=== PATIENT | male | born 1955 | race Caucasian/White ===

== ENCOUNTER 2020-10-18 08:22 | Inpatient (IN) | payer BC, OTHER ==
[~2020-10-18] VITALS: Ht 182.9 cm; Wt 93.5 kg
[2020-10-18 10:25] LABS: Albumin 2.6 g/dL (3.4-5.0); Anion Gap 10 (5-15); Blood Urea Nitrogen 8 mg/dL (7-18); Carbon Dioxide 20 mmol/L (21-32); Chloride 96 mmol/L (98-107); Glucose 116 mg/dL (74-106); Potassium 3.6 mmol/L (3.5-5.1); Sodium 126 mmol/L (136-145)
[2020-10-18 10:31] LABS: Alanine Aminotransferase 72 U/L (16-61); Alkaline Phosphatase 90 U/L (45-117); Aspartate Aminotransferase 45 U/L (15-37); BUN/Creatinine Ratio 9.9; Bilirubin, Total 1.4 mg/dL (0.2-1.0); Calcium 7.9 mg/dL (8.5-10.1); GFR African American 123 mL/min; GFR Non-African American 101 mL/min; Total Protein 7.7 g/dL (6.4-8.2)
[2020-10-18 10:37] LABS: Basophils # (auto) 0 10 ^3/uL (0-0.2); Basophils % (auto) 0.2 % (0.0-2.0); Eosinophils # (auto) 0 10 ^3/uL (0-0.8); Lymphocytes # (auto) 0.4 10 ^3/uL (0.4-5.4); Lymphocytes % (auto) 9.2 % (10.0-50.0); Mean Corpuscular Hemoglobin 35.6 pg (28.0-32.0); Mean Corpuscular Hgb Conc. 36.4 g/dL (32.0-36.0); Mean Corpuscular Volume 97.6 fL (80.0-100.0); Monocytes # (auto) 0.3 10 ^3/uL (0-1.3); Monocytes % (auto) 7.1 % (0.0-12.0); Neutrophils # (auto) 3.9 10 ^3/uL (1.6-8.6); Neutrophils % (auto) 83.5 % (37.0-80.0); Nucleated Red Blood Cells % 2.2 %; Red Blood Cells 6.23 10^6/uL (4.5-5.90); Red Cell Distribution Width 13.7 % (11.8-14.3); White Blood Cell 4.7 10^3/uL (4.4-10.8)
[2020-10-18 10:38] LABS: Hematocrit 53.2 % (41.0-53.0); Hemoglobin 19.5 g/dL (13.5-17.5)
[2020-10-18] MEDS ORDERED: SODIUM CHLORIDE 0.9% 1,000 ML IV ONE (15:30)
[2020-10-18] MEDS ORDERED: SODIUM CHLORIDE 0.9% 1,000 ML IVB ONE (15:30)
[2020-10-18] MEDS ORDERED: CHOLECALCIFEROL (VITD3) 2,000 UNIT CAP/TAB PO ONE (15:30)
[2020-10-18] MEDS ORDERED: AZITHROMYCIN 500MG/ 250ML 250 ML IV ONE (15:30)
[2020-10-18] MEDS ORDERED: cefTRIAXone 1GM/50ML D5W 50 ML IV ONE ×2 (15:30→16:30)
[2020-10-18] MEDS ORDERED: IOHEXOL 350 MG/ML 100ML IJ ONE (16:48)
[2020-10-18 16:58] LABS: INR 1.03 (0.9-1.15); Partial Thromboplastin Time 28.3 sec (23.6-33.0)
[2020-10-18] MEDS ORDERED: ALBUTEROL SULF 2.5 MG/0.5ML(0.5%) NEB SOLN NEB ONE (17:00)
[2020-10-18] MEDS ORDERED: DexAMETHasone SOD PHOS 10MG/1ML VIAL INJ IV ONE (17:00)
[2020-10-18] MEDS ORDERED: ZINC SULFATE 220mg CAP or TAB PO ONE (17:00)
[2020-10-18] MEDS ORDERED: ASCORBIC ACID 500 MG TAB PO ONE (17:00)
[2020-10-18] MEDS ORDERED: IPRATROPIUM BROM 0.5 MG/2.5ML INH SOL NEB ONE (17:00)
[2020-10-18 17:22] LABS: Lactic Acid w/Reflex 2.2 mmol/L (0.4-2.0)
[2020-10-19] MEDS ORDERED: NITROGLYCERIN 0.4 MG SL TAB SL PRN (03:45)
[2020-10-19] MEDS ORDERED: MORPHINE SULFATE INJECTION 2 MG/ML SYRG IV PRN (03:45)
[2020-10-19] MEDS ORDERED: DOCUSATE SOD 100 MG CAP PO PRN (03:45)
[2020-10-19] MEDS ORDERED: HYDROcodone-ACET 5/325MG TAB PO PRN (03:45)
[2020-10-19] MEDS ORDERED: ONDANSETRON HCL 4 MG/2 ML VIAL IV PRN (03:45)
[2020-10-19] MEDS ORDERED: ACETAMINOPHEN 500 MG TAB PO PRN (03:45)
[2020-10-19 03:49] VITALS: BP 103/57
[2020-10-19 05:20] LABS: Albumin 2.1 g/dL (3.4-5.0); Calcium 7.8 mg/dL (8.5-10.1); Magnesium 2.9 mg/dL (1.6-2.6); Potassium 3.7 mmol/L (3.5-5.1)
[2020-10-19 05:24] LABS: BUN/Creatinine Ratio 15.9; Total Protein 6.9 g/dL (6.4-8.2)
[2020-10-19] MEDS: SODIUM CHLOR 0.9% PF (SALINE LOCK) 10ML VIAL/SYR IV SCH ×3 (05:30→21:01)
[2020-10-19 05:51] LABS: Basophils # (auto) 0 10 ^3/uL (0-0.2); Basophils % (auto) 0.4 % (0.0-2.0); Eosinophils # (auto) 0 10 ^3/uL (0-0.8); Hematocrit 45.5 % (41.0-53.0); Hemoglobin 16.5 g/dL (13.5-17.5); Lymphocytes # (auto) 0.4 10 ^3/uL (0.4-5.4); Lymphocytes % (auto) 14.1 % (10.0-50.0); Mean Corpuscular Hemoglobin 35.9 pg (28.0-32.0); Mean Corpuscular Hgb Conc. 36.2 g/dL (32.0-36.0); Mean Corpuscular Volume 99.3 fL (80.0-100.0); Monocytes # (auto) 0.4 10 ^3/uL (0-1.3); Monocytes % (auto) 12.7 % (0.0-12.0); Neutrophils # (auto) 2.1 10 ^3/uL (1.6-8.6); Neutrophils % (auto) 72.8 % (37.0-80.0); Nucleated Red Blood Cells % 0.2 %; Red Blood Cells 4.58 10^6/uL (4.5-5.90); White Blood Cell 2.8 10^3/uL (4.4-10.8)
[2020-10-19] MEDS: BUDESONIDE (INHALATION) 180 MCG IH IN SCH ×3 (10:05→22:43)
[2020-10-19] MEDS: ALBUTEROL SULF HFA 90MCG INH 200DOSE IN PRN (10:05)
[2020-10-19] MEDS: cefTRIAXone 1GM/50ML D5W 50 ML IV SCH (11:14)
[2020-10-19] MEDS: DexAMETHasone SOD PHOS 10MG/1ML VIAL INJ IV SCH (11:15)
[2020-10-19] MEDS: FAMOTIDINE (10MG/ML) 2ML VL IV SCH ×2 (11:15→21:01)
[2020-10-19] MEDS: ZINC SULFATE 220mg CAP or TAB PO SCH (11:16)
[2020-10-19] MEDS: ASCORBIC ACID 1,000 MG TAB PO SCH (11:16)
[2020-10-19] MEDS: AZITHROMYCIN 500MG/ 250ML 250 ML IV SCH (11:16)
[2020-10-19] MEDS: MULTIPLE VITAMIN TAB PO SCH (11:16)
[2020-10-19] MEDS: CHOLECALCIFEROL (VITD3) 2,000 UNIT CAP/TAB PO SCH (11:17)
[2020-10-19] MEDS: ENOXAPARIN SOD 40 MG/0.4 ML SYRINGE SC SCH ×2 (11:17→21:01)
[2020-10-19] MEDS ORDERED: REMDESIVIR PER PHARMACY 0 ML IV SCH (12:30)
[2020-10-19] MEDS ORDERED: REMDESIVIR 200 MG in NS 210ml LOADING DOSE ADULT IV ONE (15:00)
[2020-10-19 17:00] VITALS: BP 126/72
[2020-10-19 22:00] VITALS: BP 109/81
[2020-10-20] MEDS ORDERED: IOHEXOL 350 MG/ML 100ML IJ ONE ×2 (05:00→15:06)
[2020-10-20 05:31] VITALS: BP 122/76
[2020-10-20] MEDS: SODIUM CHLOR 0.9% PF (SALINE LOCK) 10ML VIAL/SYR IV SCH ×3 (05:50→21:12)
[2020-10-20 06:00] LABS: Basophils # (auto) 0 10 ^3/uL (0-0.2); Eosinophils # (auto) 0 10 ^3/uL (0-0.8); Lymphocytes # (auto) 0.5 10 ^3/uL (0.4-5.4); Monocytes # (auto) 0.7 10 ^3/uL (0-1.3); Nucleated Red Blood Cells % 0.1 %
[2020-10-20 06:04] LABS: Basophils % (auto) 0.3 % (0.0-2.0); Hematocrit 46.7 % (41.0-53.0); Lymphocytes % (auto) 8.1 % (10.0-50.0); Mean Corpuscular Hemoglobin 36.2 pg (28.0-32.0); Mean Corpuscular Hgb Conc. 36.3 g/dL (32.0-36.0); Mean Corpuscular Volume 99.6 fL (80.0-100.0); Monocytes % (auto) 11.8 % (0.0-12.0); Neutrophils # (auto) 4.7 10 ^3/uL (1.6-8.6); Neutrophils % (auto) 79.8 % (37.0-80.0); Red Blood Cells 4.69 10^6/uL (4.5-5.90); Red Cell Distribution Width 13.8 % (11.8-14.3); White Blood Cell 5.9 10^3/uL (4.4-10.8)
[2020-10-20 06:23] LABS: Potassium 3.5 mmol/L (3.5-5.1)
[2020-10-20 06:33] LABS: Albumin 2.3 g/dL (3.4-5.0); BUN/Creatinine Ratio 21.5; Bilirubin, Total 0.8 mg/dL (0.2-1.0); Calcium 8.3 mg/dL (8.5-10.1); Total Protein 6.9 g/dL (6.4-8.2)
[2020-10-20] MEDS: BUDESONIDE (INHALATION) 180 MCG IH IN SCH ×2 (06:47→20:01)
[2020-10-20] MEDS: ALBUTEROL SULF HFA 90MCG INH 200DOSE IN PRN ×2 (06:48→20:01)
[2020-10-20 09:00] VITALS: BP 109/76
[2020-10-20] MEDS: FAMOTIDINE (10MG/ML) 2ML VL IV SCH ×2 (09:06→21:12)
[2020-10-20] MEDS: DexAMETHasone SOD PHOS 10MG/1ML VIAL INJ IV SCH (09:06)
[2020-10-20] MEDS: cefTRIAXone 1GM/50ML D5W 50 ML IV SCH (09:06)
[2020-10-20] MEDS: ZINC SULFATE 220mg CAP or TAB PO SCH (09:07)
[2020-10-20] MEDS: ENOXAPARIN SOD 40 MG/0.4 ML SYRINGE SC SCH ×2 (09:08→21:12)
[2020-10-20] MEDS: MULTIPLE VITAMIN TAB PO SCH (09:08)
[2020-10-20] MEDS: CHOLECALCIFEROL (VITD3) 2,000 UNIT CAP/TAB PO SCH (09:08)
[2020-10-20] MEDS: ASCORBIC ACID 1,000 MG TAB PO SCH (09:08)
[2020-10-20] MEDS: AZITHROMYCIN 500MG/ 250ML 250 ML IV SCH (10:30)
[2020-10-20 13:00] VITALS: BP 113/76
[2020-10-20] MEDS: REMDESIVIR 100mg 100 MG in SODIUM CHL 0.9% 230 ML IV SCH (15:13)
[2020-10-20 17:00] VITALS: BP 106/47
[2020-10-20 22:00] VITALS: BP 115/68
[2020-10-21 05:00] VITALS: BP 124/66
[2020-10-21] MEDS: SODIUM CHLOR 0.9% PF (SALINE LOCK) 10ML VIAL/SYR IV SCH ×3 (06:12→20:30)
[2020-10-21 06:17] LABS: Potassium 3.7 mmol/L (3.5-5.1)
[2020-10-21 06:24] LABS: Albumin 2.4 g/dL (3.4-5.0); Calcium 8.4 mg/dL (8.5-10.1); Total Protein 7.2 g/dL (6.4-8.2)
[2020-10-21] MEDS: BUDESONIDE (INHALATION) 180 MCG IH IN SCH ×2 (07:13→22:31)
[2020-10-21] MEDS: ALBUTEROL SULF HFA 90MCG INH 200DOSE IN PRN ×2 (07:13→22:31)
[2020-10-21] MEDS: DexAMETHasone SOD PHOS 10MG/1ML VIAL INJ IV SCH (09:05)
[2020-10-21] MEDS: FAMOTIDINE (10MG/ML) 2ML VL IV SCH ×2 (09:05→20:30)
[2020-10-21] MEDS: CHOLECALCIFEROL (VITD3) 2,000 UNIT CAP/TAB PO SCH (09:05)
[2020-10-21] MEDS: ENOXAPARIN SOD 40 MG/0.4 ML SYRINGE SC SCH ×2 (09:05→20:30)
[2020-10-21] MEDS: MULTIPLE VITAMIN TAB PO SCH (09:06)
[2020-10-21] MEDS: ASCORBIC ACID 1,000 MG TAB PO SCH (09:06)
[2020-10-21] MEDS: ZINC SULFATE 220mg CAP or TAB PO SCH (09:06)
[2020-10-21] MEDS: cefTRIAXone 1GM/50ML D5W 50 ML IV SCH (09:06)
[2020-10-21 09:10] VITALS: BP 124/73
[2020-10-21] MEDS: AZITHROMYCIN 500MG/ 250ML 250 ML IV SCH (11:36)
[2020-10-21 13:00] VITALS: BP 106/68
[2020-10-21] MEDS: REMDESIVIR 100mg 100 MG in SODIUM CHL 0.9% 230 ML IV SCH (15:35)
[2020-10-21 17:00] VITALS: BP 146/89
[2020-10-21 19:45] VITALS: BP 146/89
[2020-10-21 22:00] VITALS: BP 115/71
[2020-10-22 05:00] VITALS: BP 118/82
[2020-10-22 05:50] LABS: Potassium 3.6 mmol/L (3.5-5.1)
[2020-10-22 05:58] LABS: Albumin 1.9 g/dL (3.4-5.0); Bilirubin, Total 0.6 mg/dL (0.2-1.0); Calcium 8.2 mg/dL (8.5-10.1); Total Protein 6.3 g/dL (6.4-8.2)
[2020-10-22] MEDS: SODIUM CHLOR 0.9% PF (SALINE LOCK) 10ML VIAL/SYR IV SCH ×3 (06:00→22:46)
[2020-10-22] MEDS: ALBUTEROL SULF HFA 90MCG INH 200DOSE IN PRN ×2 (07:17→20:42)
[2020-10-22] MEDS: BUDESONIDE (INHALATION) 180 MCG IH IN SCH ×2 (07:18→20:42)
[2020-10-22 09:00] VITALS: BP 113/78
[2020-10-22] MEDS: cefTRIAXone 1GM/50ML D5W 50 ML IV SCH (09:32)
[2020-10-22] MEDS: DexAMETHasone SOD PHOS 10MG/1ML VIAL INJ IV SCH (10:09)
[2020-10-22] MEDS: FAMOTIDINE (10MG/ML) 2ML VL IV SCH ×2 (10:09→22:46)
[2020-10-22] MEDS: ENOXAPARIN SOD 40 MG/0.4 ML SYRINGE SC SCH ×2 (10:12→22:46)
[2020-10-22] MEDS: ASCORBIC ACID 1,000 MG TAB PO SCH (10:12)
[2020-10-22] MEDS: AZITHROMYCIN 500MG/ 250ML 250 ML IV SCH (10:12)
[2020-10-22] MEDS: MULTIPLE VITAMIN TAB PO SCH (10:12)
[2020-10-22] MEDS: ZINC SULFATE 220mg CAP or TAB PO SCH (10:13)
[2020-10-22] MEDS: CHOLECALCIFEROL (VITD3) 2,000 UNIT CAP/TAB PO SCH (10:13)
[2020-10-22 13:00] VITALS: BP 107/74
[2020-10-22] MEDS ORDERED: FUROSEMIDE 20 MG/2 ML VIAL IV ONE (14:00)
[2020-10-22] MEDS: REMDESIVIR 100mg 100 MG in SODIUM CHL 0.9% 230 ML IV SCH (15:42)
[2020-10-22 17:00] VITALS: BP 111/75
[2020-10-22 22:00] VITALS: BP 123/75
[2020-10-23 05:00] VITALS: BP 126/68
[2020-10-23] MEDS: SODIUM CHLOR 0.9% PF (SALINE LOCK) 10ML VIAL/SYR IV SCH ×3 (06:26→22:24)
[2020-10-23 06:45] LABS: Potassium 3.6 mmol/L (3.5-5.1)
[2020-10-23 06:49] LABS: Basophils # (auto) 0 10 ^3/uL (0-0.2); Basophils % (auto) 0.1 % (0.0-2.0); Eosinophils # (auto) 0 10 ^3/uL (0-0.8); Eosinophils % (auto) 0.5 % (0.0-7.0); Lymphocytes # (auto) 0.5 10 ^3/uL (0.4-5.4); Mean Corpuscular Volume 100.2 fL (80.0-100.0); Monocytes # (auto) 0.6 10 ^3/uL (0-1.3)
[2020-10-23 06:52] LABS: Hematocrit 45.2 % (41.0-53.0); Hemoglobin 16.1 g/dL (13.5-17.5); Lymphocytes % (auto) 6.5 % (10.0-50.0); Mean Corpuscular Hemoglobin 35.7 pg (28.0-32.0); Mean Corpuscular Hgb Conc. 35.7 g/dL (32.0-36.0); Monocytes % (auto) 8.1 % (0.0-12.0); Neutrophils # (auto) 6.7 10 ^3/uL (1.6-8.6); Neutrophils % (auto) 84.8 % (37.0-80.0); Red Blood Cells 4.51 10^6/uL (4.5-5.90); Red Cell Distribution Width 13.9 % (11.8-14.3); White Blood Cell 7.9 10^3/uL (4.4-10.8)
[2020-10-23 06:58] LABS: Albumin 2.2 g/dL (3.4-5.0); BUN/Creatinine Ratio 17.9; Bilirubin, Total 0.6 mg/dL (0.2-1.0); CRP High Sensitivity 10.7 mg/dL (< 0.3); Calcium 8.5 mg/dL (8.5-10.1)
[2020-10-23] MEDS: BUDESONIDE (INHALATION) 180 MCG IH IN SCH ×2 (07:22→22:00)
[2020-10-23] MEDS: ALBUTEROL SULF HFA 90MCG INH 200DOSE IN PRN (07:22)
[2020-10-23 08:00] VITALS: BP 114/78
[2020-10-23] MEDS: cefTRIAXone 1GM/50ML D5W 50 ML IV SCH (08:46)
[2020-10-23 09:00] VITALS: BP 131/88
[2020-10-23] MEDS: FAMOTIDINE (10MG/ML) 2ML VL IV SCH ×2 (09:17→22:23)
[2020-10-23] MEDS: DexAMETHasone SOD PHOS 10MG/1ML VIAL INJ IV SCH (09:17)
[2020-10-23] MEDS: FUROSEMIDE 20 MG/2 ML VIAL IV SCH (09:17)
[2020-10-23] MEDS: ZINC SULFATE 220mg CAP or TAB PO SCH (09:17)
[2020-10-23] MEDS: ASCORBIC ACID 1,000 MG TAB PO SCH (09:18)
[2020-10-23] MEDS: ENOXAPARIN SOD 40 MG/0.4 ML SYRINGE SC SCH ×2 (09:18→22:24)
[2020-10-23] MEDS: MULTIPLE VITAMIN TAB PO SCH (09:18)
[2020-10-23] MEDS: CHOLECALCIFEROL (VITD3) 2,000 UNIT CAP/TAB PO SCH (09:18)
[2020-10-23] MEDS ORDERED: FUROSEMIDE 20 MG/2 ML VIAL IV SCH (10:00)
[2020-10-23] MEDS: AZITHROMYCIN 500MG/ 250ML 250 ML IV SCH (10:27)
[2020-10-23 13:00] VITALS: BP 111/77
[2020-10-23] MEDS: REMDESIVIR 100mg 100 MG in SODIUM CHL 0.9% 230 ML IV SCH (15:53)
[2020-10-23 16:58] VITALS: BP 127/69
[2020-10-23 22:00] VITALS: BP 124/79
[2020-10-24] MEDS: ALBUTEROL SULF HFA 90MCG INH 200DOSE IN PRN ×3 (02:03→21:13)
[2020-10-24 05:00] VITALS: BP 119/75
[2020-10-24] MEDS: SODIUM CHLOR 0.9% PF (SALINE LOCK) 10ML VIAL/SYR IV SCH ×3 (06:18→22:36)
[2020-10-24] MEDS: BUDESONIDE (INHALATION) 180 MCG IH IN SCH ×2 (06:51→21:13)
[2020-10-24 06:56] LABS: Basophils # (auto) 0 10 ^3/uL (0-0.2); Basophils % (auto) 0.1 % (0.0-2.0); Eosinophils # (auto) 0.1 10 ^3/uL (0-0.8); Eosinophils % (auto) 1.1 % (0.0-7.0); Lymphocytes # (auto) 0.5 10 ^3/uL (0.4-5.4); Mean Corpuscular Hemoglobin 35.1 pg (28.0-32.0); Monocytes # (auto) 0.7 10 ^3/uL (0-1.3); Nucleated Red Blood Cells % 0.1 %
[2020-10-24 06:58] LABS: Hematocrit 45.5 % (41.0-53.0); Lymphocytes % (auto) 5.4 % (10.0-50.0); Mean Corpuscular Hgb Conc. 35.1 g/dL (32.0-36.0); Monocytes % (auto) 8.2 % (0.0-12.0); Neutrophils # (auto) 7.7 10 ^3/uL (1.6-8.6); Neutrophils % (auto) 85.2 % (37.0-80.0); Red Blood Cells 4.56 10^6/uL (4.5-5.90); Red Cell Distribution Width 13.8 % (11.8-14.3)
[2020-10-24 07:15] LABS: Potassium 4.1 mmol/L (3.5-5.1)
[2020-10-24 07:16] LABS: BUN/Creatinine Ratio 26.9; Calcium 7.9 mg/dL (8.5-10.1); Magnesium 2.7 mg/dL (1.6-2.6)
[2020-10-24 08:00] VITALS: BP 131/88
[2020-10-24 09:00] VITALS: BP 131/81
[2020-10-24] MEDS: cefTRIAXone 1GM/50ML D5W 50 ML IV SCH (09:03)
[2020-10-24] MEDS: FAMOTIDINE (10MG/ML) 2ML VL IV SCH ×2 (09:03→22:35)
[2020-10-24] MEDS: DexAMETHasone SOD PHOS 10MG/1ML VIAL INJ IV SCH (09:03)
[2020-10-24] MEDS: MULTIPLE VITAMIN TAB PO SCH (09:04)
[2020-10-24] MEDS: ASCORBIC ACID 1,000 MG TAB PO SCH (09:04)
[2020-10-24] MEDS: ZINC SULFATE 220mg CAP or TAB PO SCH (09:04)
[2020-10-24] MEDS: CHOLECALCIFEROL (VITD3) 2,000 UNIT CAP/TAB PO SCH (09:04)
[2020-10-24] MEDS: ENOXAPARIN SOD 40 MG/0.4 ML SYRINGE SC SCH ×2 (09:04→22:36)
[2020-10-24] MEDS: FUROSEMIDE 20 MG/2 ML VIAL IV SCH (09:06)
[2020-10-24 13:00] VITALS: BP 94/67
[2020-10-24 17:00] VITALS: BP 108/66
[2020-10-24 22:00] VITALS: BP 112/70
[2020-10-25 01:59] VITALS: BP 112/70
[2020-10-25 05:00] VITALS: BP 134/80
[2020-10-25] MEDS: SODIUM CHLOR 0.9% PF (SALINE LOCK) 10ML VIAL/SYR IV SCH ×3 (06:28→21:20)
[2020-10-25] MEDS: BUDESONIDE (INHALATION) 180 MCG IH IN SCH ×2 (07:32→22:01)
[2020-10-25] MEDS: ALBUTEROL SULF HFA 90MCG INH 200DOSE IN PRN ×2 (07:32→22:01)
[2020-10-25] MEDS: cefTRIAXone 1GM/50ML D5W 50 ML IV SCH (09:23)
[2020-10-25] MEDS: DexAMETHasone SOD PHOS 10MG/1ML VIAL INJ IV SCH (09:24)
[2020-10-25] MEDS: FAMOTIDINE (10MG/ML) 2ML VL IV SCH ×2 (09:25→21:20)
[2020-10-25] MEDS: ZINC SULFATE 220mg CAP or TAB PO SCH (09:25)
[2020-10-25] MEDS: MULTIPLE VITAMIN TAB PO SCH (09:25)
[2020-10-25] MEDS: FUROSEMIDE 20 MG/2 ML VIAL IV SCH (09:25)
[2020-10-25] MEDS: CHOLECALCIFEROL (VITD3) 2,000 UNIT CAP/TAB PO SCH (09:26)
[2020-10-25] MEDS: ASCORBIC ACID 1,000 MG TAB PO SCH (09:26)
[2020-10-25] MEDS: ENOXAPARIN SOD 40 MG/0.4 ML SYRINGE SC SCH ×2 (09:26→21:20)
[2020-10-25 13:00] VITALS: BP 106/78
[2020-10-25 17:00] VITALS: BP 107/69
[2020-10-25 20:00] VITALS: BP 119/68
[2020-10-25 22:00] VITALS: BP 119/68
[2020-10-26 04:50] LABS: Basophils # (auto) 0 10 ^3/uL (0-0.2); Eosinophils # (auto) 0 10 ^3/uL (0-0.8); Eosinophils % (auto) 0.4 % (0.0-7.0); Monocytes # (auto) 0.9 10 ^3/uL (0-1.3)
[2020-10-26 04:53] LABS: Basophils % (auto) 0.1 % (0.0-2.0); Hematocrit 48.1 % (41.0-53.0); Hemoglobin 16.8 g/dL (13.5-17.5); Lymphocytes # (auto) 0.6 10 ^3/uL (0.4-5.4); Mean Corpuscular Hemoglobin 34.8 pg (28.0-32.0); Mean Corpuscular Hgb Conc. 34.9 g/dL (32.0-36.0); Mean Corpuscular Volume 99.8 fL (80.0-100.0); Monocytes % (auto) 8.1 % (0.0-12.0); Neutrophils # (auto) 9.5 10 ^3/uL (1.6-8.6); Neutrophils % (auto) 86.4 % (37.0-80.0); Red Blood Cells 4.82 10^6/uL (4.5-5.90); Red Cell Distribution Width 13.8 % (11.8-14.3)
[2020-10-26] MEDS: SODIUM CHLOR 0.9% PF (SALINE LOCK) 10ML VIAL/SYR IV SCH ×3 (05:08→21:24)
[2020-10-26 05:12] LABS: Calcium 8.2 mg/dL (8.5-10.1); Magnesium 2.5 mg/dL (1.6-2.6); Potassium 4.2 mmol/L (3.5-5.1)
[2020-10-26 05:18] VITALS: BP 133/90
[2020-10-26 05:19] LABS: BUN/Creatinine Ratio 25.4; CRP High Sensitivity 6.57 mg/dL (< 0.3)
[2020-10-26] MEDS: ALBUTEROL SULF HFA 90MCG INH 200DOSE IN PRN ×2 (06:39→19:37)
[2020-10-26] MEDS: BUDESONIDE (INHALATION) 180 MCG IH IN SCH ×2 (06:40→19:38)
[2020-10-26] MEDS: cefTRIAXone 1GM/50ML D5W 50 ML IV SCH (07:56)
[2020-10-26] MEDS: DexAMETHasone SOD PHOS 10MG/1ML VIAL INJ IV SCH (08:59)
[2020-10-26 09:00] VITALS: BP 118/75
[2020-10-26] MEDS: ZINC SULFATE 220mg CAP or TAB PO SCH (09:00)
[2020-10-26] MEDS: FUROSEMIDE 20 MG/2 ML VIAL IV SCH (09:00)
[2020-10-26] MEDS: FAMOTIDINE (10MG/ML) 2ML VL IV SCH (09:00)
[2020-10-26] MEDS: CHOLECALCIFEROL (VITD3) 2,000 UNIT CAP/TAB PO SCH (09:01)
[2020-10-26] MEDS: ENOXAPARIN SOD 40 MG/0.4 ML SYRINGE SC SCH ×2 (09:01→21:24)
[2020-10-26] MEDS: MULTIPLE VITAMIN TAB PO SCH (09:01)
[2020-10-26] MEDS: ASCORBIC ACID 1,000 MG TAB PO SCH (09:01)
[2020-10-26 13:00] VITALS: BP 108/72
[2020-10-26 17:00] VITALS: BP 113/73
[2020-10-26 22:00] VITALS: BP 119/75
[2020-10-27 05:00] VITALS: BP 118/86
[2020-10-27] MEDS: SODIUM CHLOR 0.9% PF (SALINE LOCK) 10ML VIAL/SYR IV SCH ×3 (05:32→21:13)
[2020-10-27] MEDS: ALBUTEROL SULF HFA 90MCG INH 200DOSE IN PRN ×2 (07:08→22:03)
[2020-10-27] MEDS: BUDESONIDE (INHALATION) 180 MCG IH IN SCH ×2 (07:08→22:02)
[2020-10-27] MEDS: cefTRIAXone 1GM/50ML D5W 50 ML IV SCH (07:45)
[2020-10-27] MEDS: DexAMETHasone SOD PHOS 10MG/1ML VIAL INJ IV SCH (08:04)
[2020-10-27] MEDS: ZINC SULFATE 220mg CAP or TAB PO SCH (08:05)
[2020-10-27] MEDS: FUROSEMIDE 20 MG/2 ML VIAL IV SCH (08:05)
[2020-10-27] MEDS: MULTIPLE VITAMIN TAB PO SCH (08:05)
[2020-10-27] MEDS: ENOXAPARIN SOD 40 MG/0.4 ML SYRINGE SC SCH ×2 (08:06→21:13)
[2020-10-27] MEDS: ASCORBIC ACID 1,000 MG TAB PO SCH (08:06)
[2020-10-27] MEDS: CHOLECALCIFEROL (VITD3) 2,000 UNIT CAP/TAB PO SCH (08:06)
[2020-10-27 09:00] VITALS: BP 117/82
[2020-10-27 13:00] VITALS: BP 110/82
[2020-10-27 17:00] VITALS: BP 119/81
[2020-10-27 22:00] VITALS: BP 113/71
[2020-10-28] VITALS (7 sets, daily range): BP systolic 103–149; BP diastolic 69–80
[2020-10-28] MEDS: SODIUM CHLOR 0.9% PF (SALINE LOCK) 10ML VIAL/SYR IV SCH ×3 (06:04→21:34)
[2020-10-28] MEDS: ALBUTEROL SULF HFA 90MCG INH 200DOSE IN PRN ×2 (06:43→20:59)
[2020-10-28] MEDS: BUDESONIDE (INHALATION) 180 MCG IH IN SCH ×2 (06:43→20:59)
[2020-10-28] MEDS: cefTRIAXone 1GM/50ML D5W 50 ML IV SCH (09:29)
[2020-10-28] MEDS: ZINC SULFATE 220mg CAP or TAB PO SCH (09:30)
[2020-10-28] MEDS: DexAMETHasone SOD PHOS 10MG/1ML VIAL INJ IV SCH (09:30)
[2020-10-28] MEDS: ASCORBIC ACID 1,000 MG TAB PO SCH (09:31)
[2020-10-28] MEDS: ENOXAPARIN SOD 40 MG/0.4 ML SYRINGE SC SCH ×2 (09:31→21:35)
[2020-10-28] MEDS: MULTIPLE VITAMIN TAB PO SCH (09:31)
[2020-10-28] MEDS: CHOLECALCIFEROL (VITD3) 2,000 UNIT CAP/TAB PO SCH (09:31)
[2020-10-28] MEDS: FUROSEMIDE 20 MG/2 ML VIAL IV SCH ×2 (09:32→17:43)
[2020-10-28] MEDS ORDERED: FUROSEMIDE 20 MG/2 ML VIAL IV SCH (09:45)
[2020-10-28] MEDS ORDERED: SALINE 0.65 % NASAL SPRAY 45ML BOTTLE EACHNOSTRI PRN (10:45)
[2020-10-28] MEDS: SALINE 0.65 % NASAL SPRAY 45ML BOTTLE EACHNOSTRI PRN (11:46)
[2020-10-28] MEDS: FAMOTIDINE 20 MG TAB PO SCH (16:19)
[2020-10-29 05:00] VITALS: BP 120/84
[2020-10-29] MEDS: FUROSEMIDE 20 MG/2 ML VIAL IV SCH ×2 (06:03→17:46)
[2020-10-29] MEDS: SODIUM CHLOR 0.9% PF (SALINE LOCK) 10ML VIAL/SYR IV SCH ×3 (06:04→22:41)
[2020-10-29 08:00] VITALS: BP 112/81
[2020-10-29 09:00] VITALS: BP 112/81
[2020-10-29] MEDS: cefTRIAXone 1GM/50ML D5W 50 ML IV SCH (09:16)
[2020-10-29] MEDS: ASCORBIC ACID 1,000 MG TAB PO SCH (09:17)
[2020-10-29] MEDS: ZINC SULFATE 220mg CAP or TAB PO SCH (09:17)
[2020-10-29] MEDS: FAMOTIDINE 20 MG TAB PO SCH ×2 (09:17→22:41)
[2020-10-29] MEDS: DexAMETHasone SOD PHOS 10MG/1ML VIAL INJ IV SCH ×2 (09:17→22:41)
[2020-10-29] MEDS: MULTIPLE VITAMIN TAB PO SCH (09:17)
[2020-10-29] MEDS: CHOLECALCIFEROL (VITD3) 2,000 UNIT CAP/TAB PO SCH (09:18)
[2020-10-29] MEDS: ENOXAPARIN SOD 40 MG/0.4 ML SYRINGE SC SCH ×2 (09:18→22:41)
[2020-10-29] MEDS: BUDESONIDE (INHALATION) 180 MCG IH IN SCH ×2 (09:43→21:33)
[2020-10-29] MEDS: ALBUTEROL SULF HFA 90MCG INH 200DOSE IN PRN ×2 (09:43→21:33)
[2020-10-29] MEDS: SALINE 0.65 % NASAL SPRAY 45ML BOTTLE EACHNOSTRI PRN (10:55)
[2020-10-29 13:00] VITALS: BP 100/71
[2020-10-29 17:00] VITALS: BP 110/81
[2020-10-29 21:30] VITALS: BP 110/72
[2020-10-30 05:00] VITALS: BP 115/78
[2020-10-30] MEDS: SODIUM CHLOR 0.9% PF (SALINE LOCK) 10ML VIAL/SYR IV SCH ×3 (05:59→22:05)
[2020-10-30] MEDS: FUROSEMIDE 20 MG/2 ML VIAL IV SCH ×2 (05:59→18:15)
[2020-10-30 06:04] LABS: Basophils # (auto) 0.1 10 ^3/uL (0-0.2); Eosinophils # (auto) 0 10 ^3/uL (0-0.8); Lymphocytes # (auto) 0.6 10 ^3/uL (0.4-5.4); Mean Corpuscular Volume 100.5 fL (80.0-100.0); Monocytes # (auto) 0.5 10 ^3/uL (0-1.3)
[2020-10-30 06:07] LABS: Basophils % (auto) 0.6 % (0.0-2.0); Hematocrit 48.1 % (41.0-53.0); Hemoglobin 16.8 g/dL (13.5-17.5); Lymphocytes % (auto) 4.3 % (10.0-50.0); Mean Corpuscular Hemoglobin 35.2 pg (28.0-32.0); Monocytes % (auto) 4.1 % (0.0-12.0); Neutrophils # (auto) 11.8 10 ^3/uL (1.6-8.6); Red Blood Cells 4.79 10^6/uL (4.5-5.90)
[2020-10-30 06:11] LABS: Potassium 4.4 mmol/L (3.5-5.1)
[2020-10-30 06:18] LABS: BUN/Creatinine Ratio 34.9; Calcium 8.9 mg/dL (8.5-10.1); Magnesium 2.6 mg/dL (1.6-2.6)
[2020-10-30] MEDS: ALBUTEROL SULF HFA 90MCG INH 200DOSE IN PRN (07:32)
[2020-10-30] MEDS: BUDESONIDE (INHALATION) 180 MCG IH IN SCH ×2 (07:32→22:00)
[2020-10-30 08:00] VITALS: BP 115/78
[2020-10-30 09:00] VITALS: BP 109/76
[2020-10-30] MEDS: cefTRIAXone 1GM/50ML D5W 50 ML IV SCH (09:43)
[2020-10-30] MEDS: DexAMETHasone SOD PHOS 10MG/1ML VIAL INJ IV SCH ×2 (09:43→22:06)
[2020-10-30] MEDS: ASCORBIC ACID 1,000 MG TAB PO SCH (09:44)
[2020-10-30] MEDS: ZINC SULFATE 220mg CAP or TAB PO SCH (09:44)
[2020-10-30] MEDS: FAMOTIDINE 20 MG TAB PO SCH ×2 (09:44→22:05)
[2020-10-30] MEDS: MULTIPLE VITAMIN TAB PO SCH (09:44)
[2020-10-30] MEDS: ENOXAPARIN SOD 40 MG/0.4 ML SYRINGE SC SCH (09:45)
[2020-10-30] MEDS: CHOLECALCIFEROL (VITD3) 2,000 UNIT CAP/TAB PO SCH (09:45)
[2020-10-30 13:00] VITALS: BP 105/73
[2020-10-30 17:00] VITALS: BP 120/71
[2020-10-30 22:00] VITALS: BP 116/79
[2020-10-31] VITALS (7 sets, daily range): BP systolic 102–124; BP diastolic 72–83
[2020-10-31] MEDS: ALBUTEROL SULF HFA 90MCG INH 200DOSE IN PRN ×3 (00:57→19:38)
[2020-10-31] MEDS: SODIUM CHLOR 0.9% PF (SALINE LOCK) 10ML VIAL/SYR IV SCH ×3 (05:37→21:44)
[2020-10-31] MEDS: FUROSEMIDE 20 MG/2 ML VIAL IV SCH ×2 (05:38→17:46)
[2020-10-31] MEDS: BUDESONIDE (INHALATION) 180 MCG IH IN SCH ×2 (07:17→19:38)
[2020-10-31] MEDS: cefTRIAXone 1GM/50ML D5W 50 ML IV SCH (09:23)
[2020-10-31] MEDS: ZINC SULFATE 220mg CAP or TAB PO SCH (09:23)
[2020-10-31] MEDS: MULTIPLE VITAMIN TAB PO SCH (09:23)
[2020-10-31] MEDS: DexAMETHasone SOD PHOS 10MG/1ML VIAL INJ IV SCH ×2 (09:23→21:43)
[2020-10-31] MEDS: FAMOTIDINE 20 MG TAB PO SCH ×2 (09:24→21:44)
[2020-10-31] MEDS: CHOLECALCIFEROL (VITD3) 2,000 UNIT CAP/TAB PO SCH (09:24)
[2020-10-31] MEDS: ASCORBIC ACID 1,000 MG TAB PO SCH (09:24)
[2020-11-01 05:04] VITALS: BP 110/74
[2020-11-01] MEDS: SODIUM CHLOR 0.9% PF (SALINE LOCK) 10ML VIAL/SYR IV SCH ×3 (05:56→20:39)
[2020-11-01] MEDS: FUROSEMIDE 20 MG/2 ML VIAL IV SCH ×2 (05:56→18:01)
[2020-11-01] MEDS: BUDESONIDE (INHALATION) 180 MCG IH IN SCH ×2 (06:55→21:37)
[2020-11-01] MEDS: ALBUTEROL SULF HFA 90MCG INH 200DOSE IN PRN ×2 (06:55→21:37)
[2020-11-01 07:35] LABS: BUN/Creatinine Ratio 32.4; Calcium 9.1 mg/dL (8.5-10.1); Potassium 3.8 mmol/L (3.5-5.1)
[2020-11-01 08:00] VITALS: BP 110/74
[2020-11-01 09:00] VITALS: BP 109/80
[2020-11-01] MEDS: FAMOTIDINE 20 MG TAB PO SCH ×2 (09:22→20:39)
[2020-11-01] MEDS: DexAMETHasone SOD PHOS 10MG/1ML VIAL INJ IV SCH ×2 (09:22→20:40)
[2020-11-01] MEDS: cefTRIAXone 1GM/50ML D5W 50 ML IV SCH (09:22)
[2020-11-01] MEDS: MULTIPLE VITAMIN TAB PO SCH (09:22)
[2020-11-01] MEDS: ZINC SULFATE 220mg CAP or TAB PO SCH (09:22)
[2020-11-01] MEDS: CHOLECALCIFEROL (VITD3) 2,000 UNIT CAP/TAB PO SCH (09:23)
[2020-11-01] MEDS: ASCORBIC ACID 1,000 MG TAB PO SCH (09:23)
[2020-11-01 13:00] VITALS: BP 117/75
[2020-11-01 17:00] VITALS: BP 108/78
[2020-11-01 22:00] VITALS: BP 110/74
[2020-11-02 05:22] VITALS: BP 109/71
[2020-11-02] MEDS: FUROSEMIDE 20 MG/2 ML VIAL IV SCH ×2 (05:38→17:21)
[2020-11-02] MEDS: SODIUM CHLOR 0.9% PF (SALINE LOCK) 10ML VIAL/SYR IV SCH ×3 (05:38→20:15)
[2020-11-02 06:06] LABS: BUN/Creatinine Ratio 35.8; Calcium 8.5 mg/dL (8.5-10.1); Potassium 4.3 mmol/L (3.5-5.1)
[2020-11-02 09:00] VITALS: BP 123/80
[2020-11-02] MEDS: ZINC SULFATE 220mg CAP or TAB PO SCH (09:14)
[2020-11-02] MEDS: DexAMETHasone SOD PHOS 10MG/1ML VIAL INJ IV SCH ×2 (09:14→20:16)
[2020-11-02] MEDS: cefTRIAXone 1GM/50ML D5W 50 ML IV SCH (09:14)
[2020-11-02] MEDS: MULTIPLE VITAMIN TAB PO SCH (09:15)
[2020-11-02] MEDS: CHOLECALCIFEROL (VITD3) 2,000 UNIT CAP/TAB PO SCH (09:15)
[2020-11-02] MEDS: ASCORBIC ACID 1,000 MG TAB PO SCH (09:15)
[2020-11-02] MEDS: FAMOTIDINE 20 MG TAB PO SCH ×2 (09:15→20:15)
[2020-11-02] MEDS: ALBUTEROL SULF HFA 90MCG INH 200DOSE IN PRN ×2 (09:25→19:46)
[2020-11-02] MEDS: BUDESONIDE (INHALATION) 180 MCG IH IN SCH ×2 (09:25→19:47)
[2020-11-02 13:00] VITALS: BP 117/75
[2020-11-02 16:51] VITALS: BP 118/68
[2020-11-02 22:00] VITALS: BP 99/65
[2020-11-03 05:00] VITALS: BP 106/76
[2020-11-03] MEDS: SODIUM CHLOR 0.9% PF (SALINE LOCK) 10ML VIAL/SYR IV SCH (05:17)
[2020-11-03] MEDS: FUROSEMIDE 20 MG/2 ML VIAL IV SCH (05:17)
[2020-11-03 06:47] LABS: BUN/Creatinine Ratio 32.4; Calcium 8.1 mg/dL (8.5-10.1); Potassium 4.2 mmol/L (3.5-5.1)
[2020-11-03] MEDS: BUDESONIDE (INHALATION) 180 MCG IH IN SCH (07:31)
[2020-11-03] MEDS: ALBUTEROL SULF HFA 90MCG INH 200DOSE IN PRN (07:31)
[2020-11-03] MEDS: ZINC SULFATE 220mg CAP or TAB PO SCH (09:32)
[2020-11-03] MEDS: ASCORBIC ACID 1,000 MG TAB PO SCH (09:32)
[2020-11-03] MEDS: DexAMETHasone SOD PHOS 10MG/1ML VIAL INJ IV SCH (09:32)
[2020-11-03] MEDS: MULTIPLE VITAMIN TAB PO SCH (09:32)
[2020-11-03] MEDS: FAMOTIDINE 20 MG TAB PO SCH (09:32)
[2020-11-03] MEDS: cefTRIAXone 1GM/50ML D5W 50 ML IV SCH (09:32)
[2020-11-03] MEDS: CHOLECALCIFEROL (VITD3) 2,000 UNIT CAP/TAB PO SCH (09:32)
[2020-11-03 09:41] VITALS: BP 108/74
[2020-11-03 10:18] VITALS: BP 106/75
== END 2020-11-03 12:20 | disposition home health service (06) | DRG 177 ==
LOC: ER 08:22 → TELE 10-19 03:31 → EAST 10-19 17:16 → TELE-EAST 10-22 06:22
PROVIDERS: ADMIT Nurse Practitioner Family; ATTEND Internal Medicine
PROC: XW033E5 Introduction of Remdesivir Anti-infective into Peripheral Vein, Percutaneous Approach, New Technology Group 5 (ICD-10-PCS; principal; 2020-10-19)
DX: U07.1 COVID-19 (principal); J96.01 Acute respiratory failure with hypoxia; J12.82 Pneumonia due to coronavirus disease 2019; J98.11 Atelectasis; E88.09 Other disorders of plasma-protein metabolism, not elsewhere classified; J44.9 Chronic obstructive pulmonary disease, unspecified; E86.0 Dehydration; E07.9 Disorder of thyroid, unspecified; E78.5 Hyperlipidemia, unspecified; Z72.0 Tobacco use
CPT/HCPCS: 36415; 71045; 71250; 71275; 80048; 80053; 82728; 83036; 83605; 83615; 83735; 83880; 84443; 84484; 85025; 85379; 85610; 85730; 86141; 87040; 87426; 93005; 93970; 94640; 96365; 96366; 96367; 96368; 96372; 96375; 96376; G0378; J0696; J1100; J3490